=== PATIENT | female | born 1975 | race Two or more races ===

== ENCOUNTER 2018-11-29 09:20 | Emergency (ER) ==
[2018-11-29 09:26] VITALS: BP 150/95; TEMP 97.1; BMI 28.3
[2018-11-29] MEDS ORDERED: SODIUM CHLORIDE 1,000 ML IV STA ×2 (09:47)
[2018-11-29] MEDS ORDERED: MORPHINE 2 MG/ML SYRINGE IVP STA (09:47)
[2018-11-29] MEDS ORDERED: ZOFRAN 4 MG/2 ML IVP STA (09:47)
[2018-11-29 11:10] LABS: URINE PREGNANCY TEST NEGATIVE (NEGATIVE)
[2018-11-29] MEDS ORDERED: ROCEPHIN 1 GM in SODIUM CHLORIDE 50 ML IV STA (11:20)
--- NOTE | 2018-11-29 11:23 | ED.PDOC ---
General ED Provider: Dr. FELIX DEL CASTILLO Chief Complaint: Urinary Problem Stated Complaint: dysuria Time Seen by Physician: 09:30 Mode of Arrival: Walk-In Information Source: Patient Exam Limitations: No limitations Primary Care Provider: DORENE TURCIOS Nursing and Triage Documentation Reviewed and Agree: Yes Does patient meet sepsis criteria?: No System Inflammatory Response Syndrome: Not Applicable Sepsis Protocol: For patient's 13 years and over: Temp is 96.8 and below OR 101 and greater Pulse >90 BPM Resp >20/minute Acutely Altered Mental Status Are patient's symptoms suggestive of a new infection, such as: -Pneumonia -Skin, Soft Tissue -Endocarditis -UTI -Bone, Joint Infection -Implantable Device -Acute Abdominal Infection -Wound Infection -Meningitis -Blood Stream Catheter Infection -Unknown Complaint Exam - Complaint/Exam Patient Complains of: Reports: Dysuria Onset/Duration: 1 day Symptoms Are: Still present Timing: Intermittent Initial Severity: Moderate Current Severity: Moderate Location of Pain: Reports: Suprapubic Character: Reports: Burning, Cramping Aggravating: Reports: Urination Alleviating: Reports: None Associated Signs and Symptoms: Reports: Dysuria, Nausea. Denies: Diaphoresis, Back pain, Fever, Hematuria, Constipation, Blood in stool, Rectal pain, Appetite change, Vomiting, Decreased urine output, Increased urine frequency, Increased thirst, Decreased activity, Lethargy, Abdominal Pain, Bubble bath use , Vaginal bleeding, Vaginal discharge, Genital swelling, Genital blisters, Retained foreign body Ectopic Risk Factors: Reports: Maternal age >30 Ovarian Torsion Risk Factors: Reports: Reproductive age Surgical Obstruction Risk Factors: Reports: None RH Status: Unknown Related Surgical History: Reports: None Abdominal Findings: Present: None Differential Diagnoses: Renal Colic, Ureteral Stone, UTI Review of Systems - Review Of Systems Constitutional: Reports: Malaise Eyes: Reports: No symptoms Ears, Nose, Mouth, Throat: Reports: No symptoms Respiratory: Reports: No symptoms Cardiac: Reports: No symptoms GI: Reports: Vomiting : Reports: Dysuria Musculoskeletal: Reports: No symptoms Skin: Reports: No symptoms Neurological: Reports: No symptoms Endocrine: Reports: No symptoms Hematologic/Lymphatic: Reports: No symptoms All Other Systems: Reviewed and Negative Past Medical History - Past Medical History Previously Healthy: Yes Endocrine: Reports: Hypothyroid Cardiovascular: Reports: None Respiratory: Reports: None Hematological: Reports: None Gastrointestinal: Reports: None Genitourinary: Reports: None Neuro/Psych: Reports: None Musculoskeletal: Reports: None Cancer: Reports: None Last Menstrual Period: LAST MONTH - Surgical History General Surgical History: Reports: None - Family History Family History: Reports: None - Social History Smoking Status: Never smoker Hx Substance Use: No Alcohol Screening: None Physical Exam - Physical Exam Appearance: Well-appearing, No pain distress, Well-nourished Eyes: RUTH, EOMI, Conjunctiva clear ENT: Ears normal, Nose normal, Oropharynx normal Respiratory: Airway patent, Breath sounds clear, Breath sounds equal, Respirations nonlabored Cardiovascular: RRR, Pulses normal, No rub, No murmur GI/: Soft, Nontender, No masses, Bowel sounds normal, No Organomegaly Musculoskeletal: Normal strength, ROM intact, No edema, No calf tenderness Skin: Warm, Dry, Normal color Neurological: Sensation intact, Motor intact, Reflexes intact, Cranial nerves intact, Alert, Oriented Psychiatric: Affect appropriate, Mood appropriate Re-Evaluation - Re-Evaluation Time of Re-Evaluation: 11:22 (blood work discussed , uti discussed ) Status: Improved Vital Signs Stable: Yes Pain Level: 2/10 Appearance: NAD Lungs: Clear Skin: Warm and Dry Neuro: Alert and Oriented X3 CV: RRR Critical Care Note - Critical Care Note Total Time (mins): 0 Course - Course Hematology/Chemistry: 11/29/18 10:00 11/29/18 10:00 Orders, Labs, Meds: Lab Review 11/29/18 11/29/18 11/29/18 10:00 10:00 11:02 WBC 12.87 H RBC 4.55 Hgb 12.2 Hct 37.1 MCV 81.5 MCH 26.8 L MCHC 32.9 RDW Coeff of Live 14.4 Plt Count 304 Immature Gran % (Auto) 0.3 Neut % (Auto) 81.1 Lymph % (Auto) 13.2 [place] % (Auto) 4.4 Eos % (Auto) 0.5 Baso % (Auto) 0.5 Immature Gran # (Auto) 0.0 Neut # (Auto) 10.5 H Lymph # (Auto) 1.7 [place] # (Auto) 0.6 Eos # (Auto) 0.1 Baso # (Auto) 0.1 Sodium 135.2 Potassium 3.53 Chloride 102.5 Carbon Dioxide 27.3 Anion Gap 8.93 BUN 9.7 Creatinine 0.79 Estimated GFR (MDRD) 80.00 BUN/Creatinine Ratio 12.27 Glucose 112.8 H Calcium 9.47 Total Bilirubin 0.60 AST 23.3 ALT 18.8 Alkaline Phosphatase 58.9 Total Protein 7.93 Albumin 4.53 Globulin 3.40 Albumin/Globulin Ratio 1.33 Urine Color Yellow Urine Clarity Clear Urine pH 6.0 Ur Specific [place] <=1.005 Urine Protein Trace Urine Glucose (UA) Negative Urine Ketones 1+ Urine Blood 3+ Urine Nitrite Negative Urine Bilirubin Negative Urine Urobilinogen 0.2 Ur Leukocyte Esterase Trace Urine Microscopic RBC 10-20 Ur Squamous Epith Cells 2-5 Urine Bacteria 1+ Urine Mucus 2+ Urine Test 11/29/18 11:02 WBC RBC Hgb Hct MCV MCH MCHC RDW Coeff of Live Plt Count Immature Gran % (Auto) Neut % (Auto) Lymph % (Auto) [place] % (Auto) Eos % (Auto) Baso % (Auto) Immature Gran # (Auto) Neut # (Auto) Lymph # (Auto) [place] # (Auto) Eos # (Auto) Baso # (Auto) Sodium Potassium Chloride Carbon Dioxide Anion Gap BUN Creatinine Estimated GFR (MDRD) BUN/Creatinine Ratio Glucose Calcium Total Bilirubin AST ALT Alkaline Phosphatase Total Protein Albumin Globulin Albumin/Globulin Ratio Urine Color Urine Clarity Urine pH Ur Specific [place] Urine Protein Urine Glucose (UA) Urine Ketones Urine Blood Urine Nitrite Urine Bilirubin Urine Urobilinogen Ur Leukocyte Esterase Urine Microscopic RBC Ur Squamous Epith Cells Urine Bacteria Urine Mucus Urine Test Negative Orders Category Date Time Status ED IV/MEDIPORT/POWERPORT .ONCE EMERGENCY 11/29/18 09:48 Active CBC W/ AUTO DIFF Stat LAB 11/29/18 10:00 Completed COMPREHENSIVE METABOLIC PANEL Stat LAB 11/29/18 10:00 Completed URINALYSIS C & S IF INDICATED Stat LAB 11/29/18 11:02 Completed URINE CULTURE Stat LAB 11/29/18 11:02 Received URINE Stat LAB 11/29/18 11:02 Completed 0.9 % Sodium Chloride [Saline Flush] MEDS 11/29/18 09:48 Active 1 syr IVF PRN PRN Ceftriaxone Sodium [Rocephin] 1 gm MEDS 11/29/18 11:20 Ordered 0.9 % Sodium Chloride [Sodium Chloride] 50 ml IV ONCE Morphine Sulfate [Morphine 2 mg/ml Syringe] MEDS 11/29/18 09:47 Discontinued 4 mg IVP ONCE STA Ondansetron HCl/Pf [Zofran 4 mg/2 ml] MEDS 11/29/18 09:47 Discontinued 4 mg IVP ONCE STA Sodium Chloride 0.9% [Sodium Chloride] 1,000 ml MEDS 11/29/18 09:47 Discontinued IV BOLUS Sodium Chloride 0.9% [Sodium Chloride] 1,000 ml MEDS 11/29/18 09:[address] ABD/PEL WO RENAL STONE PROT Stat RADS 11/29/18 09:47 Ordered Medications Generic Name Dose Route Start Last Admin Trade Name Freq PRN Reason Stop Dose Admin Sodium Chloride 1 syr 11/29/18 09:48 Saline Flush IVF PRN PRN To flush IV Discontinued Medications Generic Name Dose Route Start Last Admin Trade Name Freq PRN Reason Stop Dose Admin Sodium Chloride 1,000 mls @ 1,000 mls/hr 11/29/18 09:47 11/29/18 10:53 Sodium Chloride IV 11/29/18 10:46 1,000 mls/hr BOLUS STA Administration Sodium Chloride 1,000 mls @ 1,000 mls/hr 11/29/18 09:47 Sodium Chloride IV 11/29/18 10:46 BOLUS STA Morphine Sulfate 4 mg 11/29/18 09:47 11/29/18 10:52 Morphine 2 Mg/Ml Syringe IVP 11/29/18 09:48 Not Given ONCE STA Ondansetron HCl 4 mg 11/29/18 09:47 11/29/18 10:53 Zofran 4 Mg/2 Ml IVP 11/29/18 09:48 Not Given ONCE STA Vital Signs: Temp Pulse Resp BP Pulse Ox 11/29/18 09:21 97.1 F L 65 20 150/95 H 98 Departure - Departure Time of Disposition: 12:00 Disposition: HOME SELF-CARE Discharge Problem: Urinary symptoms, Urinary tract infectious disease Instructions: Urinary Tract Infection in Women (ED), Urinary Tract Infection in Women (DC), Dysuria (ED) Condition: Good Pt referred to PMD for follow-up: Yes IPMP verified?: Yes Additional Instructions: Please call your Family Physician as soon as possible to schedule a follow-up appointment. Allergies/Adverse Reactions: Allergies No Known Allergies Allergy (Unverified 01/10/19 09:27) Home Medications: Ambulatory Orders Albuterol Sulfate [Proair Hfa] 2 puff IH Q6H PRN 11/29/18 Levothyroxine Sodium [Tirosint] 25 mcg PO DAILY 11/29/18 Sulfamethoxazole/Trimethoprim [Bactrim Ds 800/160 mg] 1 tab PO Q12HR #14 tablet 11/29/18
[2018-11-29] MEDS ORDERED: ROCEPHIN ONE (11:24)
== END 2018-11-29 11:41 | disposition home or self-care (01) ==
LOC: ED 09:20
DX: N39.0 Urinary tract infection, site not specified (principal)
CPT/HCPCS: 36415; 80053; 81001; 81025; 85025; 87086; 96361; 96365; 96375; 99283